=== PATIENT | female | born 1990 ===

== ENCOUNTER → 2018-08-13 | Outpatient (REF) | payer SELFPAY ==
[2018-08-13 10:18] LABS: PLATELET COUNT, AUTOMATED 291 K/uL (150-450)
== END ==
PROVIDERS: ATTEND Nurse Practitioner Family
DX: R11.2 Nausea with vomiting, unspecified (principal)
CPT/HCPCS: 82040; 82247; 82310; 82374; 82435; 82565; 82947; 84075; 84132; 84155; 84295; 84450; 84460; 84520; 85025